=== PATIENT | female | born 1970 | race American Indian/Alaskan Native ===

== ENCOUNTER 2021-11-26 07:03 | Emergency (ER) | payer MEDICARE ==
[2021-11-26 07:11] VITALS: BP 158/106
[2021-11-26 09:24] LABS: Basophils % (Auto) 0.4 % (0.0-1.8); Eosinophils # (Auto) 0.2 K/mm3 (0.0-0.4); Eosinophils % (Auto) 2.3 % (0.0-4.3); Hematocrit 40.1 % (30.3-42.9); Hemoglobin 12.9 gm/dl (10.1-14.3); Lymphocytes # (Auto) 2.8 K/mm3 (1.2-5.4); Lymphocytes % (Auto) 26.9 % (13.4-35.0); Mean Corpuscular HGB Conc 32 % (30-34); Mean Corpuscular Volume 86 fl (79-97); Monocytes # (Auto) 0.5 K/mm3 (0.0-0.8); Monocytes % (Auto) 5.3 % (0.0-7.3); Platelet Count 328 K/mm3 (140-440); Red Blood Count 4.63 M/mm3 (3.65-5.03); Red Cell Distribution Width 14.6 % (13.2-15.2)
[2021-11-26 09:46] LABS: Alanine Aminotransferase 27 units/L (7-56); Albumin 4.1 g/dL (3.9-5); Blood Urea Nitrogen 10 mg/dL (7-17); Calcium 9.5 mg/dL (8.4-10.2); Hemolysis Index 3
--- NOTE | 2021-11-26 09:55 | Emergency Department Report ---
ED Abdominal Pain HPI - General Chief Complaint: Abdominal Pain Stated Complaint: ABD AND BACK PAIN Time Seen by Provider: 11/26/21 09:50 Source: patient Mode of arrival: Ambulatory Limitations: No Limitations - History of Present Illness Initial Comments: 51-year-old -[place] female presents to the emergency room for 3-day history of left flank pain that radiates to her front lower abdomen. She denies any trauma she denies any hematuria since this small bit of dysuria. Patient is status post hysterectomy secondary to fibroids. She does admit to nausea and feeling hot and cold. She has a history of hypertension and diabetes. She is currently on hydrochlorothiazide lovastatin and Ozempic. She currently does not have a primary care provider she is from [place]. Complaint: flank pain Onset/Timin -: days(s) Location: L flank Radiation: LLQ Severity scale (0 -10): 9 Quality: stabbing, aching, sharp Consistency: intermittent Improves With: nothing Worsens With: movement, other (Palpation) Associated Symptoms: nausea, vomiting, fever, chills. denies: diarrhea - Related Data LMP (females 10-50): unknown (Status post hysterectomy) Home Medications Medication Instructions Recorded Confirmed Last Taken AtorvaSTATin 10 mg PO QDAY 11/26/21 11/26/21 1 Day Ago ~11/25/21 Ozempic 1 mg PO QDAY 11/26/21 11/26/21 1 Day Ago ~11/25/21 hydroCHLOROthiazide 25 mg PO QDAY 11/26/21 11/26/21 1 Day Ago ~11/25/21 Allergies Allergy/AdvReac Type Severity Reaction Status Date / Time No Known Allergies Allergy Verified 11/26/21 08:16 ED Review of Systems ROS: Stated complaint: ABD AND BACK PAIN Other details as noted in HPI Comment: All other systems reviewed and negative ED Past Medical Hx - Medications Home Medications: Home Medications Medication Instructions Recorded Confirmed Last Taken Type AtorvaSTATin 10 mg PO QDAY 11/26/21 11/26/21 1 Day Ago History ~11/25/21 Ozempic 1 mg PO QDAY 11/26/21 11/26/21 1 Day Ago History ~11/25/21 hydroCHLOROthiazide 25 mg PO QDAY 11/26/21 11/26/21 1 Day Ago History ~11/25/21 ED Physical Exam - General Limitations: No Limitations General appearance: alert, in no apparent distress - Head Head exam: Present: atraumatic, normocephalic - Eye Eye exam: Present: EOMI - ENT ENT exam: Present: normal exam, normal external ear exam - Neck Neck exam: Present: normal inspection, full ROM - Respiratory Respiratory exam: Present: normal lung sounds bilaterally. Absent: respiratory distress - Cardiovascular Cardiovascular Exam: Present: regular rate - GI/Abdominal GI/Abdominal exam: Present: soft, tenderness, guarding - Extremities Exam Extremities exam: Present: normal inspection, full ROM - Back Exam Back exam: Present: full ROM, CVA tenderness (L) - Neurological Exam Neurological exam: Present: alert, oriented X3, normal gait - Psychiatric Psychiatric exam: Present: normal affect, normal mood - Skin Skin exam: Present: warm, dry, intact, normal color. Absent: rash ED Course Vital Signs 11/26/21 07:10 Temperature 98.0 F Pulse Rate 84 Respiratory 18 Rate Blood Pressure 158/106 [Right] O2 Sat by Pulse 97 Oximetry ED Medical Decision Making - Lab Data Result diagrams: 11/26/21 09:12 11/26/21 09:12 - Radiology Data Radiology results: report reviewed [facility] [address] [place] [address] Cat Scan Report Signed Patient: DUDLEY IVAN MR#: [id number] : 1970 Acct:[id number] Age/Sex: 51 / F ADM Date: 11/26/21 Loc: ED Attending Dr: Ordering Physician: RED TOLLIVER Date of Service: 11/26/21 Procedure(s): CT abdomen pelvis w con Accession Number(s): [id number] cc: RED TOLLIVER CT ABDOMEN AND PELVIS WITH CONTRAST INDICATION / CLINICAL INFORMATION: LUQ pain and tenderness.. TECHNIQUE: Axial CT images were obtained through the abdomen and pelvis after 100 mL Omnipaque [address] scans at this location are performed using CT dose reduction for ALARA by means of automated exposure control. COMPARISON: None available. FINDINGS: LOWER CHEST: No significant abnormality. LIVER: Multiple small probable simple cysts. GALLBLADDER: No significant abnormality. BILE DUCTS: No significant abnormality. PANCREAS: No significant abnormality. SPLEEN: No significant abnormality. ADRENALS: No significant abnormality. RIGHT KIDNEY / URETER: No significant abnormality. LEFT KIDNEY / URETER: No significant abnormality. STOMACH / SMALL BOWEL: No significant abnormality. COLON: No significant abnormality. APPENDIX: No significant abnormality. PERITONEUM: No free fluid. No free air. No fluid collection. LYMPH NODES: No significant adenopathy. AORTA / ARTERIES: No significant abnormality. IVC / VEINS: No significant abnormality. URINARY BLADDER: No significant abnormality. REPRODUCTIVE ORGANS: Uterus is absent. No significant adnexal abnormality. ADDITIONAL FINDINGS: None. SKELETAL SYSTEM: No significant abnormality. IMPRESSION: 1. No acute process in the abdomen or pelvis. Signer Name: Flori Steen MD Signed: 11/26/2021 11:10 AM Workstation Name: [id number] Transcribed By: DT Dictated By: Henry Steen MD Electronically Authenticated By: Henry Steen MD Signed Date/Time: 11/26/21 1110 DD/ 1107 TD/TT: - Medical Decision Making 51-year-old -[place] female presents to the emergency room for 3-day history of left flank pain that radiates to her front lower abdomen. She denies any trauma she denies any hematuria since this small bit of dysuria. Patient is status post hysterectomy secondary to fibroids. She does admit to nausea and feeling hot and cold. She has a history of hypertension and diabetes. She is currently on hydrochlorothiazide lovastatin and Ozempic. She currently does not have a primary care provider she is from [place]. CBC CMP lipase urinalysis hCG, CT abdomen with contrast. Critical care attestation.: If time is entered above; I have spent that time in minutes in the direct care of this critically ill patient, excluding procedure time. ED Disposition Clinical Impression: Abdominal pain Disposition: HOME / SELF CARE / HOMELESS Is pt being admited?: No Does the pt Need Aspirin: No Condition: Stable Instructions: Abdominal Pain (ED) Additional Instructions: All labs and CT scan is negative for any acute abnormalities. I recommend Tylenol ibuprofen for pain management. Follow-up with a electric arc welder, [facility] and her primary care provider. Referrals: [facility] [Provider Group] - 3-5 Days [facility] [Provider Group] - 3-5 Days RICK BAILEY MD [Staff Physician] - 3-5 Days Forms: Work/School Release Form(ED) Time of Disposition: 12:14
[2021-11-26 09:56] LABS: BUN/Creatinine Ratio 17
[2021-11-26 09:59] LABS: HCG Qualitative,Urine Negative (Negative)
[2021-11-26 10:04] LABS: Bilirubin,Urine NEG (Negative); Blood,Urine SM (Negative); Color,Urine Yellow (Yellow); Mucus,Urine 3+ /HPF; Protein,Urine <15 mg/dL mg/dL (Negative)
--- NOTE | 2021-11-26 11:15 | Cat Scan Report ---
CT ABDOMEN AND PELVIS WITH CONTRAST INDICATION / CLINICAL INFORMATION: LUQ pain and tenderness.. TECHNIQUE: Axial CT images were obtained through the abdomen and pelvis after 100 mL Omnipaque [address] scans at this location are performed using CT dose reduction for ALARA by means of automated exposure control. COMPARISON: None available. FINDINGS: LOWER CHEST: No significant abnormality. LIVER: Multiple small probable simple cysts. GALLBLADDER: No significant abnormality. BILE DUCTS: No significant abnormality. PANCREAS: No significant abnormality. SPLEEN: No significant abnormality. ADRENALS: No significant abnormality. RIGHT KIDNEY / URETER: No significant abnormality. LEFT KIDNEY / URETER: No significant abnormality. STOMACH / SMALL BOWEL: No significant abnormality. COLON: No significant abnormality. APPENDIX: No significant abnormality. PERITONEUM: No free fluid. No free air. No fluid collection. LYMPH NODES: No significant adenopathy. AORTA / ARTERIES: No significant abnormality. IVC / VEINS: No significant abnormality. URINARY BLADDER: No significant abnormality. REPRODUCTIVE ORGANS: Uterus is absent. No significant adnexal abnormality. ADDITIONAL FINDINGS: None. SKELETAL SYSTEM: No significant abnormality. IMPRESSION: 1. No acute process in the abdomen or pelvis. Signer Name: Flori Steen MD Signed: 11/26/2021 11:10 AM Workstation Name: [id number]
== END 2021-11-26 13:35 | disposition home or self-care (01) ==
LOC: ED 07:03
DX: R10.32 Left lower quadrant pain (principal)
CPT/HCPCS: 36415; 74177; 80053; 81001; 81025; 85025; 99284; Q9967